=== PATIENT | male | born 1955 | race Caucasian/White ===

== ENCOUNTER 2016-12-17 05:20 | Emergency (ER) | payer OTHER ==
[2016-12-17] MEDS ORDERED: NS 0.9% 1000 ML* 3,000 ML IV ONE (06:22)
[2016-12-17 06:41] LABS: Hematocrit 35 % (42-52); Hemoglobin 11.3 g/dl (14.0-18.0); Mean Corpuscular HGB Conc 33 g/dl (31-36); Mean Corpuscular Hemoglobin 28 pg (27-31); Mean Corpuscular Volume 85 fL (80-94); Mean Platelet Volume 10 um3 (7.4-10.4); Red Blood Count 4.09 10^6/ul (4.0-5.4); Red Cell Distribution Width 21 % (10.5-15); White Blood Count 13.7 10^3/ul (3.5-10.8)
[2016-12-17 06:54] LABS: Comments Flag Yes
--- NOTE | 2016-12-17 07:16 | ED ---
Adonay Juarez Adam, scribed for Darnell Molina MD on 12/17/16 at 0542 . GI/ HPI - HPI Summary HPI Summary: Pt is a 61 year old male presenting with hematuria and abdominal pain. He first noticed blood in his urine when he got up to go to the bathroom this morning. The blood was bright red (not tea-colored). There is burning during urination as well. Pt has had hematuria in the past. He has been having the abdominal pain for several days and has been taking morphine and oxycodone. It is localized on the right side of the abdomen. 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 He had an abdominal US 1 week ago which was negative. There is also pedal edema which is not new. Negative back pain, flank pain, and blood in stools. 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 He is on a blood-thinner. Negative hx of kidney stones. He has never had a catheter. - History of Current Complaint Chief Complaint: EDUrogenitalProblems Stated Complaint: BLOOD IN URINE/BOLAND TO URINATE Hx Obtained From: Patient Onset/Duration: Started Minutes Ago, Atraumatic, Still Present Timing: Intermittent Severity: Moderate Current Severity: Moderate Pain Intensity: 7 Location of Pain: Diffuse - Right side Associated Signs and Symptoms: Positive: Hematuria, Dysuria - Burning, Abdominal Pain, Other: - Pedal edema Aggravating Factor(s): Nothing Alleviating Factor(s): Nothing - Additional Pertinent History Primary Care Physician: [id number] - Allergy/Home Medications Allergies/Adverse Reactions: Allergies Allergy/AdvReac Type Severity Reaction Status Date / Time Aspirin Allergy See Comment Verified 12/17/16 05:31 Baclofen Allergy Unknown Verified 12/17/16 05:31 Reaction Details PMH/Surg Hx/FS Hx/Imm Hx Endocrine/Hematology History: Reports: Hx Anticoagulant Therapy Denies: Hx Blood Disorders, Hx Blood Transfusions, Hx Diabetes, Hx Anemia, Hx Unexplained Bleeding Cardiovascular History: Reports: Hx Hypertension - ON MEDS Denies: Hx Aneurysm, Hx Angina, Hx Angioplasty, Hx Auto Implanted Cardiovert Defib, Hx Cardiac Arrest, Hx Cardiomegaly, Hx Congenital Heart Disease, Hx Congestive Heart Failure, Hx Coronary Artery Disease, Hx Deep Vein Thrombosis, Hx Embolism, Hx Hypercholesterolemia, Hx Hypotension, Hx Pacemaker/ICD, Hx Peripheral Vascular Disease, Hx Rheumatic Fever, Hx Syncope, Hx Valvular Heart Disease, Other Cardiovascular Problems/Disorders Respiratory History: Reports: Hx Pneumonia - years ago Denies: Hx Asthma, Hx Chronic Bronchitis, Hx Chronic Obstructive Pulmonary Disease (COPD), Hx Cystic Fibrosis, Hx Lung Cancer, Hx Pleural Effusion, Hx Pulmonary Edema, Hx Pulmonary Embolism, Hx Seasonal Allergies, Hx Sleep Apnea, Other Respiratory Problems/Disorders GI History: Reports: Other GI Disorders - TUMOR LOWER PORTION OF ESOPHAGUS- HICCUPS Denies: Hx Cirrhosis, Hx Crohn's Disease, Hx Diverticulosis, Hx Gall Bladder Disease, Hx Gastroesophageal Reflux Disease History: Denies: Hx Dialysis, Hx Renal Disease Musculoskeletal History: Reports: Hx Arthritis - hips, Hx Back Problems Sensory History: Reports: Hx Contacts or Glasses Denies: Hx Cataracts, Hx Eye Injury, Hx Eye Prosthesis, Hx Glaucoma, Hx Legally Blind, Hx Macular Degeneration, Hx Vision Problem, Hx Deafness, Hx Hearing Aid, Hx Hearing Problem, Other Sensory Impairments Opthamlomology History: Reports: Hx Contacts or Glasses Denies: Hx Cataracts, Hx Eye Injury, Hx Eye Prosthesis, Hx Glaucoma, Hx Legally Blind, Hx Macular Degeneration, Hx Vision Problem, Other Sensory Impairments Psychiatric History: Denies: Hx Panic Disorder - Cancer History Cancer Type, Location and Year: RECENTLY DIAGNOSED, esophageal Hx Chemotherapy: No Hx Radiation Therapy: Yes Hx Palliative Cancer Treatment: No - Surgical History Surgery Procedure, Year, and Place: LEFT ELBOW REPAIR 20 YEARS AGO; HEART CATHETERIZATION NO STENTS Hx Anesthesia Reactions: No Infectious Disease History: No Infectious Disease History: Denies: Hx Clostridium Difficile, Hx Hepatitis, Hx Human Immunodeficiency Virus (HIV), Hx of Known/Suspected MRSA, Hx Shingles, Hx Tuberculosis, History Other Infectious Disease, Traveled Outside the [place] in Last 30 Days - Family History Known Family History: Positive: Other - Negative malignant hyperthermia, negative anesthesia reaction - Social History Occupation: Employed Full-time Lives: With Family - and daughter Alcohol Use: None Hx Substance Use: No Substance Use Type: Reports: None Hx Tobacco Use: No Smoking Status (MU): Never Smoked Tobacco Review of Systems Negative: Fever Positive: Abdominal Pain Positive: burning, hematuria. Negative: flank pain Positive: Edema - Pedal All Other Systems Reviewed And Are Negative: Yes Physical Exam - Summary Physical Exam Summary: The patient is well-nourished in no acute distress and in no acute pain. The skin is warm and dry and skin color reflects adequate perfusion. Decreased skin turgor. 2 small ulcerations on the left buttocks, about 1 cm. Superficial. Not excoriated. HEENT: The head is normocephalic and atraumatic. The pupils are equal and reactive. The conjunctivae are clear and without drainage. Nares are patent and without drainage. Mouth reveals dry mucous membranes. The throat is without erythema and exudate. The external ears are intact. The ear canals are patent and without drainage. The tympanic membranes are intact. Neck is supple with full range of motion and non-tender. There are no carotid bruits. There is no neck vein distension. Respiratory: Chest is non-tender. Lungs are clear to auscultation and breath sounds are symmetrical and equal. Cardiovascular: Heart is regular rate and rhythm. There is no murmur or rub auscultated. There is edema of the lower extremities. Abdomen: Tenderness in the RLQ. No CVA tenderness. Musculoskeletal: There is no back pain noted. Extremities are non-tender with full range of motion. 2 second capillary refill. There is edema of the lower extremities. Neurological: Patient is alert and oriented to person, place and time. The patient has symmetrical motor strength in all four extremities. Cranial nerves are grossly intact. Deep tendon reflexes are symmetrical and equal in all four extremities. Psychiatric: The patient has an appropriate affect and does not exhibit any anxiety or depression. Triage Information Reviewed: Yes Vital Signs On Initial Exam: Initial Vitals Temp Pulse Resp BP Pulse Ox 98.4 F 102 18 114/77 95 12/17/16 05:28 12/17/16 05:28 12/17/16 05:28 12/17/16 05:28 12/17/16 05:28 Vital Signs Reviewed: Yes Diagnostics - Vital Signs Vital Signs Temp Pulse Resp BP Pulse Ox 12/17/16 05:28 98.4 F 102 18 114/77 95 - Laboratory Lab Results: Lab Results 12/17/16 12/17/16 12/17/16 Range/Units 06:30 06:30 06:30 WBC 13.7 H (3.5-10.8) 10^3/ul RBC 4.09 (4.0-5.4) 10^6/ul Hgb 11.3 L (14.0-18.0) g/dl Hct 35 L (42-52) % MCV 85 (80-94) fL MCH 28 (27-31) pg MCHC 33 (31-36) g/dl RDW 21 H (10.5-15) % Plt Count 42 L (150-450) 10^3/ul MPV 10 (7.4-10.4) um3 Neut % (Auto) 75.4 (38-83) % Lymph % (Auto) 5.3 L (25-47) % Atlantic % (Auto) 14.7 H (1-9) % Eos % (Auto) 3.9 (0-6) % Baso % (Auto) 0.7 (0-2) % Absolute Neuts (auto) 10.3 H (1.5-7.7) 10^3/ul Absolute Lymphs (auto) 0.7 L (1.0-4.8) 10^3/ul Absolute Monos (auto) 2.0 H (0-0.8) 10^3/ul Absolute Eos (auto) 0.5 (0-0.6) 10^3/ul Absolute Basos (auto) 0.1 (0-0.2) 10^3/ul Absolute Nucleated RBC 0 10^3/ul Nucleated RBC % 0 INR (Anticoag Therapy) 1.39 H (0.89-1.11) APTT 36.7 H (26.0-36.3) seconds Lactic Acid 1.9 (0.5-2.0) mmol/L Result Diagrams: 12/17/16 06:30 Lab Statement: Any lab studies that have been ordered have been reviewed, and results considered in the medical decision making process. GIGU Course/Dx - Diagnoses Differential Diagnoses - Male: Renal Colic, Urinary Tract Infection, Other - chronic anticoagulation therapy Provider Diagnoses: Hematuria, Abdominal pain Discharge - Discharge Plan Condition: Stable Disposition: OTHER Discharge Disposition Comment: Sign out to Dr. Wright, pending CT results. Referrals: Davey Izquierdo MD [Primary Care Provider] - The documentation as recorded by the Adonay burgess Adam accurately reflects the service I personally performed and the decisions made by , Darnell Molina MD.
[2016-12-17 08:57] LABS: Albumin 2.3 g/dL (3.2-5.2); BUN/Creatinine Ratio 58.6 (8-20); C Reactive Protein 208.7 mg/L (< 5.00); Calcium 8.4 mg/dL (8.6-10.3); EGFR Non-African American 141.5 (>60); Globulin 3.4 g/dL (2-4); Potassium 3.9 mmol/L (3.5-5.0); Total Bilirubin 4.6 mg/dL (0.2-1.0); Total Protein 5.7 g/dL (6.4-8.9)
[2016-12-17] MEDS ORDERED: Iohexol 300* (CONTRAST) 10 ML SDV IV ONE (09:07)
--- NOTE | 2016-12-17 09:58 | RAD ---
HISTORY: Right lower quadrant pain, hematuria, history of esophageal cancer COMPARISONS: October 12, 2016, July 27, 2016 TECHNIQUE: Multiple contiguous axial CT scans were obtained of the chest, abdomen, and pelvis after the administration of intravenous contrast. Coronal and sagittal multiplanar reformations are submitted for review.. Oral contrast was administered. Delayed images were obtained through the abdomen and pelvis. FINDINGS: Evaluation is limited by patient breathing motion artifact. CHEST NECK AND THYROID: The lower neck and thyroid are unremarkable. CHEST WALL: There is no lower cervical, axillary, or supraclavicular lymphadenopathy by size criteria. A right-sided chest port is noted. HEART AND PERICARDIUM: The heart is unremarkable. AORTA AND PULMONARY VASCULATURE: The aorta and pulmonary vasculature are normal. MEDIASTINUM: There is no mediastinal lymphadenopathy by size criteria. FATOUMATA: There is no hilar lymphadenopathy by size criteria. AIRWAY AND ESOPHAGUS: There is stable mucosal thickening of the distal esophagus. LUNG PARENCHYMA: There is subsegmental atelectasis of the lung bases bilaterally. There are scattered pulmonary micronodules. Direct comparison is limited secondary to breathing motion artifact PLEURA: There is moderate right and small left pleural effusion. BONES AND SOFT TISSUES: There is a persistent compression deformity of T4. There is stable circumscribed osteolytic lesion of T3 to the right. ABDOMEN/PELVIS: LIVER: There are multiple hepatic parenchymal masses. These have progressed when compared to October 12, 2016. The largest is a lesion that extends from the caudate lobe into the left lobe of liver measuring approximately 8.3 x 6.5 x 8.7 cm in size. The left hepatic vein is not well visualized. BILE DUCTS: There is no intrahepatic or extrahepatic biliary dilatation. GALLBLADDER: The gallbladder is normal, without pericholecystic inflammatory change. PANCREAS: The pancreas is normal, without mass or ductal dilatation. SPLEEN: There are sharply marginated hypoattenuating lesions of the spleen suggestive of splenic infarcts. The splenic artery and vein appear patent. UPPER GI TRACT: Evaluation of the gastrointestinal tract is limited by incomplete gastric distention. As noted above, there is mucosal thickening of the distal esophagus. SMALL BOWEL \T\ MESENTERY: The small bowel is normal in contour, course, and caliber. There is no obstruction or dilatation. COLON: The colon is normal in contour, course, caliber. There is no pericolonic inflammatory change. ADRENALS: Normal bilaterally. KIDNEYS: Multiple renal cysts are noted. There is no hydronephrosis or nephrolithiasis BLADDER: The bladder is smooth in contour. PELVIC ORGANS: The prostate is diffusely enlarged. The seminal vesicles are symmetric. AORTA: The aorta is normal. . IVC: Unremarkable.There are retroperitoneal varicosities LYMPH NODES: There are subcentimeter short axis mesenteric lymph nodes. ABDOMINAL WALL: There are bilateral fat-containing hernias BONES: Degenerative changes are noted of the spine. There is lytic lesion of L5, stable. There is advanced osteoarthritis of the hips. OTHER: There is trace amount of ascites. IMPRESSION: 1. LIMITED STUDY. 2. MODERATE RIGHT AND SMALL LEFT PLEURAL EFFUSION WITH ASSOCIATED BIBASILAR ATELECTASIS. 3. AGAIN NOTED ARE SCATTERED PULMONARY PARENCHYMAL NODULES. 4. THERE ARE MULTIPLE HEPATIC MASSES. THESE HAVE PROGRESSED WHEN COMPARED TO OCTOBER 12, 2016, CONSISTENT WITH PROGRESSION OF METASTATIC DISEASE. THE LEFT HEPATIC VEIN IS NOT WELL VISUALIZED AND MAY BE OCCLUDED. 5. THERE ARE CIRCUMSCRIBED LOW-ATTENUATION LESIONS OF THE SPLEEN. 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 THE SPLENIC ARTERY AND VEIN ARE PATENT. METASTATIC DISEASE IS ALSO WITHIN THE DIFFERENTIAL GIVEN THE HISTORY OF MALIGNANCY. 6. TRACE ASCITES. 7. AGAIN NOTED IS MUCOSAL THICKENING OF THE DISTAL ESOPHAGUS. 8. THERE ARE RETROPERITONEAL VARICES WHICH MAY REFLECT PORTOSYSTEMIC SHUNTING IN THE SETTING OF PORTAL HYPERTENSION. 9. TRACE ASCITES. 10. ENLARGED PROSTATE. 11. AGAIN NOTED IS OSSEOUS METASTATIC DISEASE, SIMILAR TO THE PREVIOUS EXAMINATION.
[2016-12-17 12:17] LABS: Urine Bacteria Absent (Absent); Urine Bilirubin 1+ (Negative); Urine Glucose 1+(50 mg/dL) (Negative); Urine Nitrite Negative (Negative)
[2016-12-17 14:03] VITALS: BP 117/83
--- NOTE | 2016-12-17 15:33 | ED ---
Ann, Kelly Bustamante, scribed for Brian Wright MD on 12/17/16 at 0719 . Progress - Progress Note Progress Note: Re-Evaluation at 1046 - informed pt of lab results. Consult with Dr. Doran (melter loader) as 1252 Mr. Barrow was feeling somewhat better and did not want to wait for Dr. Doran to review his CT. In his condition, I will, of course, respect his decision. He is D/C'd in stable condition with a diagnosis of severe dehydration. - Results/Orders Results/Orders: Chest/Abdomen/Pelvis CT - Impression (Radiologist): 1. LIMITED STUDY. 2. MODERATE RIGHT AND SMALL LEFT PLEURAL EFFUSION WITH ASSOCIATED BIBASILAR ATELECTASIS. 3. AGAIN NOTED ARE SCATTERED PULMONARY PARENCHYMAL NODULES. 4. THERE ARE MULTIPLE HEPATIC MASSES. THESE HAVE PROGRESSED WHEN COMPARED TO OCTOBER 12, 2016, CONSISTENT WITH PROGRESSION OF METASTATIC DISEASE. THE LEFT HEPATIC VEIN IS NOT WELL VISUALIZED AND MAY BE OCCLUDED. 5. THERE ARE CIRCUMSCRIBED LOW-ATTENUATION LESIONS OF THE SPLEEN. 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 THE SPLENIC ARTERY AND VEIN ARE PATENT. METASTATIC DISEASE IS ALSO WITHIN THE DIFFERENTIAL GIVEN THE HISTORY OF MALIGNANCY. 6. TRACE ASCITES. 7. AGAIN NOTED IS MUCOSAL THICKENING OF THE DISTAL ESOPHAGUS. 8. THERE ARE RETROPERITONEAL VARICES WHICH MAY REFLECT PORTOSYSTEMIC SHUNTING IN THE SETTING OF PORTAL HYPERTENSION. 9. TRACE ASCITES. 10. ENLARGED PROSTATE. 11. AGAIN NOTED IS OSSEOUS METASTATIC DISEASE, SIMILAR TO THE PREVIOUS EXAMINATION. Re-Evaluation - Re-Evaluation First Eval Re-Evaluation Time: 10:46 Course/Dx - Diagnoses Provider Diagnoses: Hematuria, Abdominal pain - Provider Notifications Discussed Care Of Patient With: 1252: Discussed care of pt with Dr. Doran ( hematology) The documentation as recorded by the norbertoibDoctor king Tahera accurately reflects the service I personally performed and the decisions made by me, Brian Wright MD.
== END 2016-12-17 14:06 | disposition home or self-care (01) ==
LOC: ED 05:20
DX: R10.9 Unspecified abdominal pain (principal); R31.9 Hematuria, unspecified; E86.0 Dehydration; R30.0 Dysuria; R60.0 Localized edema
CPT/HCPCS: 36415; 71260; 74177; 80053; 81003; 81015; 83605; 83690; 85025; 85610; 85730; 86140; 99283; Q9967